=== PATIENT | female | born 1995 ===

== ENCOUNTER → 2025-03-11 13:39 | Outpatient (CLI) | payer OTHER, SELFPAY ==
--- NOTE | 2025-03-11 13:44 | DI.RAD.S_ITS ---
PROCEDURE: XR KNEE LT 3V INDICATIONS: ARTHRITIS TECHNIQUE: 3 views of the knee were acquired. COMPARISON: None. FINDINGS: Bones: There are no osseous abnormalities. Joints: The tibialfemoral and patellofemoral joints are normal in width and alignment without arthritic change. . Small effusion Soft tissues: Normal IMPRESSION: Small effusion Dictated by: Gavin Carty M.D. on 03/14/2025 at 12:28 Approved by: Gavin Carty M.D. on 03/14/2025 at 12:28
--- NOTE | 2025-03-11 13:44 | DI.RAD.S_ITS ---
PROCEDURE: XR KNEE RT 3V INDICATIONS: ARTHRITIS TECHNIQUE: 3 views of the knee were acquired. COMPARISON: None. FINDINGS: Bones: There are no osseous abnormalities. Joints: The tibialfemoral and patellofemoral joints are normal in width and alignment without arthritic change. . Small effusion Soft tissues: Normal IMPRESSION: Small effusion Dictated by: Gavin Carty M.D. on 03/14/2025 at 12:28 Approved by: Gavin Carty M.D. on 03/14/2025 at 12:29
== END ==
LOC: RAD 13:43
PROVIDERS: Referring Provider Chiropractor; Visit Provider Chiropractor
DX: M13.861 Other specified arthritis, right knee (principal); M13.862 Other specified arthritis, left knee; M25.461 Effusion, right knee; M25.462 Effusion, left knee
CPT/HCPCS: 73562